=== PATIENT | male | born 1985 | race Caucasian/White ===

== ENCOUNTER → 2019-02-25 | Outpatient (CLI) | payer OTHER | LOC: COL.RAD 13:03 | DX: M94.252 Chondromalacia, left hip (principal); Z98.890 Other specified postprocedural states | CPT/HCPCS: A9585; J3301; Q9967 ==

== ENCOUNTER → 2022-12-02 | Outpatient (CLI) | payer OTHER | LOC: COL.PUL 12:36 | DX: R06.02 Shortness of breath (principal) | CPT/HCPCS: J7674 ==

== ENCOUNTER 2023-11-21 15:29 | Outpatient (RCR) | payer OTHER | END 2023-11-27 | disposition home or self-care (01) | LOC: WSOH | DX: S63.501D Unspecified sprain of right wrist, subsequent encounter (principal); Y99.0 Civilian activity done for income or pay; F41.9 Anxiety disorder, unspecified; F43.10 Post-traumatic stress disorder, unspecified ==